=== PATIENT | female | born 1955 | race Hispanic/Latino ===

== ENCOUNTER 2016-12-22 08:30 | Day surgery (SDC) | payer OTHER ==
[~2016-12-22 08:30] MED LIST: ANCEF/STERILE WATER 2 GM/20 ML 2 GM/20 ML SYRINGE IV SCH; ceFAZolin 2 GM in NACL 0.9% 100 ML IV ONE
[2016-12-22] MEDS ORDERED: NACL BACTERIOSTATIC INFILTRATI ONE (08:51)
--- NOTE | 2016-12-22 09:16 | Anesthesia Consultation ---
Anesthesia Consult and Med Hx Date of service: 12/22/16 - Airway Anesthetic Teeth Evaluation: Good ROM Head & Neck: Adequate Mental/Hyoid Distance: Adequate Mallampati Class: Class II Intubation Access Assessment: Probably Good - Pulmonary Exam CTA: Yes - Cardiac Exam Cardiac Exam: RRR - Pre-Operative Health Status ASA Pre-Surgery Classification: ASA2 Proposed Anesthetic Plan: General - Pulmonary Hx Smoking: Yes Hx Asthma: Yes (last used inhaler 3 weeks ago) - Cardiovascular System Hx Hypertension: No - Central Nervous System Hx Neuromuscular Disorder: Yes (Tremor) Hx Psychiatric Problems: Yes (Anxiety) - Gastrointestinal Hx Gastroesophageal Reflux Disease: No - Endocrine Hx End Stage Renal Disease: No Hx Non-Insulin Dependent Diabetes: No - Hematic Hx Anemia: Yes - Other Systems Hx Obesity: No - Additional Comments Anesthesia Medical History Comments: take propranolol for tremor, stopped taking meds 2 days ago
--- NOTE | 2016-12-22 09:17 | Anesthesia Day of Surgery ---
Anesthesia Day of Surgery - Day of Surgery Patient Examined: Yes Patient H&P Reviewed: Yes Patient is NPO: Yes
[2016-12-22] MEDS ORDERED: PROVENTIL IH NR ×2 (09:30→13:00)
[2016-12-22] MEDS ORDERED: DILAUDID ONE ×2 (09:36→12:27)
[2016-12-22] MEDS ORDERED: DIPRIVAN 10 MG/ML IV ONE (09:36)
[2016-12-22] MEDS ORDERED: NACL 0.9% NEBU ONE (09:37)
[2016-12-22] MEDS ORDERED: NACL 0.9% 1000 ML 1,000 ML IV SCH (10:00)
[2016-12-22] MEDS ORDERED: VERSED IV NR (10:00)
[2016-12-22] MEDS ORDERED: PEPCID IV NR (10:00)
[2016-12-22] MEDS ORDERED: XYLOCAINE MPF 2% ONE (10:59)
[2016-12-22] MEDS ORDERED: ZEMURON IV ONE (10:59)
[2016-12-22] MEDS ORDERED: NACL 0.9% IR ONE (11:27)
[2016-12-22] MEDS ORDERED: MARCAINE-EPI 0.5%-1:200,000 INFILTRATI ONE ×2 (11:28)
[2016-12-22] MEDS ORDERED: BLOXIVERZ ONE (11:41)
[2016-12-22] MEDS ORDERED: ROBINUL ONE (11:41)
[2016-12-22] MEDS ORDERED: ZOFRAN ONE (11:41)
--- NOTE | 2016-12-22 12:05 | Discharge Summary ---
Short Stay Discharge Plan Activity: other (d/c when stable. reg diet. home health. d/c packing sunday am. irrigate with 50% h2o2/NS brandy pack with mesalt qd) Weight Bearing Status: Partial Weight Bearing Diet: regular Wound: per wound nurse instructions Follow up with: CHULA AGUILAR MD [Staff Physician] - 12/27/16
[2016-12-22] MEDS ORDERED: PROVENTIL IH ONE (12:20)
[2016-12-22] MEDS ORDERED: DILAUDID IV PRN (12:36)
--- NOTE | 2016-12-22 12:37 | Operative Report ---
PREOPERATIVE DIAGNOSIS: Left groin nodule, rule out lymphadenopathy. POSTOPERATIVE DIAGNOSIS: Necrotic purulent left inguinal node, rule out cat scratch fever. PROCEDURES: 1. Left groin exploration. 2. Left inguinal lymph node biopsy. 3. Aerobic and anaerobic cultures of the purulence. The specimen was also sent fresh to pathology for other cultures. DESCRIPTION OF PROCEDURE: The patient was taken up to the operating room, prepped and draped in usual sterile fashion. The palpable nodule had been outlined with a marking pencil. A 15 blade was used to incise skin and subcutaneous tissue. Needle tip electrocautery was used to dissect down to the nodule in question. A [id number] 3-0 Vicryl suture was used for retraction. Needle tip electrocautery as well as blunt and sharp dissection were used to remove the necrotic lymph node in its entirety. Purulence was noted during the dissection. Aerobic and anaerobic cultures were taken. Lymph node was completely removed and sent fresh to pathology. The area was irrigated copiously and dry. Checked for hemostasis and noted to be dry. The subcutaneous was closed with interrupted 3-0 Vicryl suture. The core of the area was packed with quarter inch iodoform gauze. The lateral most portions of the incision were closed with interrupted 4-0 Vicryl. A fluff and pressure dressing applied. A 0.5% Marcaine with epinephrine was also used to infiltrate the area for postop pain relief. The patient tolerated the procedure well and left the OR in stable condition. JOB# [id number]/KIESHA
--- NOTE | 2016-12-22 13:19 | Post Anesthesia Evaluation ---
- Post Anesthesia Evaluation Patient Participated: Yes Airway Patent: Yes Stable Respiratory Function: Yes Nausea/Vomiting: No Temp > 96.8F: Yes Pain Manageable: Yes Adequeate Hydration: Yes Anesthesia Complications: No Block Receding Appropriately: Not Applicable Patient on Ventilator: No
[2016-12-22 14:32] VITALS: BP 116/58
== END 2016-12-22 14:50 | disposition home or self-care (01) ==
LOC: OR 08:30
PROVIDERS: ATTEND Surgery
DX: R19.09 Other intra-abdominal and pelvic swelling, mass and lump (principal); J45.909 Unspecified asthma, uncomplicated; F41.9 Anxiety disorder, unspecified; D64.9 Anemia, unspecified; Z87.891 Personal history of nicotine dependence
CPT/HCPCS: 38505; 87075; 87102; 87116; 87220; J0690; J1170; J2250; J2405; J2704; J2710; J7030